=== PATIENT | female | born 1980 | race Caucasian/White ===

== ENCOUNTER 2020-10-17 09:37 | Outpatient (CLI) | payer OTHER, SELFPAY ==
--- NOTE | ~2020-10-17 | XR_ITS ---
EXAMINATION: XR hand BI arthritis min 3V EXAM DATE: 10/17/2020 10:46 INDICATION: M05.79 - Rheumatoid arthritis with rheumatoid factor of multiple sites without organ or s ystems involvement TECHNIQUE: Right hand frontal, lateral and oblique projections obtained and reviewed. Left hand fron lilli, lateral and oblique projections obtained and reviewed. Catchers projection of both hands. There is no prior study for comparison. FINDINGS: Right hand: There are no bony erosions identified. Joint spaces are uniform and symmetric to contrala teral side, no bony productive changes. No radiopaque foreign bodies identified. There are no acute f ractures identified. The soft tissue is unremarkable. Left hand: There are no bony erosions identified. Joint spaces are uniform and symmetric, no bony pro ductive changes. No radiopaque foreign bodies identified. There are no acute fractures identified. Th e soft tissue is unremarkable. IMPRESSION: Unremarkable hand exam. Reviewed, dictated and finalized at location A. IMPRESSION: Unremarkable hand exam.
--- NOTE | ~2020-10-17 | XR_ITS ---
EXAMINATION: XR foot LT standing 2V EXAM DATE: 10/17/2020 10:46 INDICATION: M05.79 - Rheumatoid arthritis with rheumatoid factor of multiple sites without organ or s ystems involvement . TECHNIQUE: Left foot 2 view frontal and lateral standing projections. There is no prior study for c omparison. FINDINGS: There are no bony erosions identified. There are no acute fractures or dislocations identi fied. There is no subcutaneous gas. The soft tissue is unremarkable. There are no radiopaque fore ign bodies. IMPRESSION: 1. Unremarkable XR foot LT standing 2V exam. Reviewed, dictated and finalized at location A.
--- NOTE | ~2020-10-17 | XR_ITS ---
EXAMINATION: XR thoracic spine 3V EXAM DATE: 10/17/2020 10:46 INDICATION: M54.9 - Dorsalgia, unspecified. TECHNIQUE: Frontal and lateral projections of the thoracic spine as well as lateral swimmers projecti on of the upper thoracic spine for interpretation. There is no prior study for comparison. FINDINGS: The vertebral bodies are aligned in the AP dimension. Vertebral body and disc heights are w ell-maintained. There are no acute fractures identified. Paraspinal soft tissue is unremarkable. Ther e are no bony erosions identified. IMPRESSION: Unremarkable thoracic x-ray exam. Reviewed, dictated and finalized at location A.
--- NOTE | ~2020-10-17 | XR_ITS ---
EXAMINATION: XR foot RT standing 2V EXAM DATE: 10/17/2020 10:46 INDICATION: M05.79 - Rheumatoid arthritis with rheumatoid factor of multiple sites without organ or s ystems involvement TECHNIQUE: Right foot frontal and lateral weightbearing projections. There is no prior study for com fer. FINDINGS: Tiny right calcaneal inferior spur. There are no bony erosions identified. There are no ac [place] fractures or dislocations identified. There is no subcutaneous gas. The soft tissue is unremark able. There are no radiopaque foreign bodies. IMPRESSION: Tiny right calcaneal spur. Reviewed, dictated and finalized at location A. IMPRESSION: Tiny right calcaneal spur.
== END 2020-10-17 09:38 | disposition home or self-care (01) ==
LOC: ANHIMG 09:47
PROVIDERS: PCP Family Medicine; Visit Provider Internal Medicine
DX: M54.6 Pain in thoracic spine (principal); M05.79 Rheumatoid arthritis with rheumatoid factor of multiple sites without organ or systems involvement
CPT/HCPCS: 72072; 73130; 73620

== ENCOUNTER 2020-11-05 09:30 | Outpatient (CLI) | payer OTHER, SELFPAY ==
--- NOTE | ~2020-11-05 | NM_ITS ---
EXAMINATION: NM stress w perf spect multi DATE: 11/05/2020 12:09 INDICATION: Dyspnea TECHNIQUE: Rest images were obtained following intravenous administration of 9.9 mCi Tc99m tetrofosmi n ([id number]). The patient performed an exercise activity. At peak exercise, 31.8 mCi Tc99m tetrofosmin ([id number]) was administered intravenously, and stress images were obtained. Data was reconstructed in to short axis and horizontal and vertical long axis SPECT images. Gated SPECT images were also obtain ed. COMPARISON: None. FINDINGS: There is normal left ventricular perfusion without definite evidence of reversible or fixed perfusion abnormality to suggest ischemia or infarction. There is normal left ventricular chamber size, wall motion and ejection fraction. Left ventricular ejection fraction measures >70%. IMPRESSION: 1. Normal myocardial perfusion at rest and during stress. 2. Left ventricular ejection fraction measuring >70%. Reviewed, dictated and finalized at location A.
--- NOTE | 2020-11-05 10:01 | EST_ITS ---
Patient Info Name: Vee Christiansen Age: 39 years : 1980 Gender: Female Ht: 65 in Wt: 190 lbs BSA: 2.02 m2 HR: 69 bpm BP: 128 / 77 mmHg Heart Rhythm: Sinus Rhythm Exam Date: 11/05/2020 10:49 AM Exam Location: [facility] Stress Patient Status: Outpatient Admit Date: 11/05/2020 Staff Ordering Physician: Leidy Baker MD Attending Provider: Leidy Baker MD Exercise Technologist: Tawny Beck CT Exercise Physician: Quinn Sidhu DO Exam Type: CA stress test treadmill w NM Study Info Indications R06.09 - Other forms of dyspnea A nuclear stress test was performed. Summary 1. 1. Negative Bc exercise stress test for ischemic ST changes by ECG criteria. 2. 2. Reduced functional capacity, achieving 7 METs of workload. 3. 3. Rapid HR response to exercise. 4. 4. Appropriate HR recovery at 1 minute post exercise. 5. 5. Nuclear scan to follow and will be reported separately. Please correlate with it. 6. 6. Patient informed of the above results. Protocol: Bc Stress ECG Details Stage: REST Duration (min): 1 min : 4 sec Speed (mph): 0.0 Grade (%): 0 HR (bpm): 73 SBP (mmHg): 128 DBP (mmHg): 77 METS: --- Stage: REST Duration (min): 4 min : 35 sec Speed (mph): 0.0 Grade (%): 0 HR (bpm): --- SBP (mmHg): 128 DBP (mmHg): 77 METS: --- Stage: STAGE 1 Duration (min): 1 min : 0 sec Speed (mph): 1.7 Grade (%): 10 HR (bpm): 120 SBP (mmHg): 128 DBP (mmHg): 77 METS: --- Stage: STAGE 1 Duration (min): 2 min : 0 sec Speed (mph): 1.7 Grade (%): 10 HR (bpm): 152 SBP (mmHg): 128 DBP (mmHg): 77 METS: --- Stage: STAGE 1 Duration (min): 3 min : 0 sec Speed (mph): 1.7 Grade (%): 10 HR (bpm): 164 SBP (mmHg): 161 DBP (mmHg): 83 METS: --- Stage: STAGE 2 Duration (min): 1 min : 0 sec Speed (mph): 2.5 Grade (%): 12 HR (bpm): 174 SBP (mmHg): 161 DBP (mmHg): 83 METS: --- Stage: STAGE 2 Duration (min): 1 min : 30 sec Speed (mph): 2.5 Grade (%): 12 HR (bpm): 174 SBP (mmHg): 200 DBP (mmHg): 83 METS: --- Stage: RECOVERY Duration (min): 0 min : 29 sec Speed (mph): 0.0 Grade (%): 0 HR (bpm): 168 SBP (mmHg): 200 DBP (mmHg): 83 METS: --- Stage: RECOVERY Duration (min): 1 min : 29 sec Speed (mph): 0.0 Grade (%): 0 HR (bpm): 139 SBP (mmHg): 200 DBP (mmHg): 83 METS: --- Stage: RECOVERY Duration (min): 2 min : 29 sec Speed (mph): 0.0 Grade (%): 0 HR (bpm): 117 SBP (mmHg): 200 DBP (mmHg): 83 METS: --- Stage: RECOVERY Duration (min): 2 min : 53 sec Speed (mph): 0.0 Grade (%): 0 HR (bpm): 109 SBP (mmHg): 184 DBP (mmHg): 81 METS: --- Peak HR: 175 bpm Rest Sys BP: 128 mmHg Peak Sys BP: 200 mmHg Max Pred HR: 181 bpm % Max Pred HR: 97 % Target HR: 154 bpm Max RPP: 35,000 bpm*mmHg
== END 2020-11-05 09:31 | disposition home or self-care (01) ==
PROVIDERS: PCP Family Medicine; Visit Provider Family Medicine
DX: R06.00 Dyspnea, unspecified (principal); Z91.89 Other specified personal risk factors, not elsewhere classified
CPT/HCPCS: 78452; 93017; A9502

== ENCOUNTER 2020-12-19 09:39 | Outpatient (CLI) | payer OTHER, SELFPAY ==
--- NOTE | 2020-12-19 09:58 | ECHO_ITS ---
Patient Info Name: Vee Christiansen Age: 39 years : 1980 Gender: Female Ht: 65 in Wt: 185 lbs BSA: 1.99 m2 HR: 73 bpm BP: 125 / 75 mmHg Heart Rhythm: Sinus Rhythm Exam Date: 12/19/2020 10:10 AM Exam Location: [facility] Patient Status: Outpatient Admit Date: 12/19/2020 Staff Ordering Physician: Quinn Sidhu DO Assistant Food Service Director: Gauri Rojas RDCS Attending Provider: Quinn Sidhu DO Referring Physician: Nahum SAMPSON; Exam Type: CA echo doppler color flow Study Info Indications R06.00 - Dyspnea, unspecified Complete two-dimensional, color flow and Doppler transthoracic echocardiogram is performed. Summary 1. Complete two-dimensional, color flow and Doppler transthoracic echocardiogram is performed. 2. Left ventricular chamber dimension is normal. 3. Left ventricular systolic function is normal, estimated at 60-65%. 4. The left ventricular diastolic function is grade II diastolic dysfunction. 5. E/e' 7 is not elevated. 6. There is mild mitral valve regurgitation. 7. There is trace tricuspid valve regurgitation. 8. No pulmonary hypertension, estimated pulmonary arterial systolic pressure is 24 mmHg. Left Ventricle E/e' 7 is not elevated. Left ventricular chamber dimension is normal. Left ventricular systolic function is normal, estimated at 60-65%. The left ventricular diastolic function is grade II diastolic dysfunction. Right Ventricle Right ventricular systolic function is normal and with normal TAPSE 2.0 cm.. Right ventricular chamber dimension is normal. Left Atria Left atrial chamber dimension is normal. Right Atria Right atrial chamber dimension is normal. Aortic Valve The aortic valve is trileaflet. There is no aortic valve stenosis. There is no aortic valve regurgitation. Pulmonic Valve There is no pulmonic regurgitation. Mitral Valve There is no mitral valve stenosis. There is mild mitral valve regurgitation. Tricuspid Valve There is trace tricuspid valve regurgitation. No pulmonary hypertension, estimated pulmonary arterial systolic pressure is 24 mmHg. Pericardium/Pleural There is no pericardial effusion. Inferior Vena Cava Normal inferior vena cava with >50% collapse upon inspiration consistent with normal right atrial pressure, 5 mmHg. Aorta The aortic root size at the sinus of Valsalva is normal. Left Ventricular Outflow Tract Name Value Normal LVOT 2D LVOT Diameter 1.9 cm LVOT Doppler LVOT Peak Gradient 4 mmHg LVOT Mean Gradient 2 mmHg LVOT VTI 20 cm LVOT VTI/AV VTI Ratio 0.7 LVOT Stroke Volume 54 ml LVOT CO 3.9 l/min LVOT CI 1.9 l/min/m2 Pulmonic Valve Name Value Normal RVOT Doppler
== END 2020-12-19 09:40 | disposition home or self-care (01) ==
PROVIDERS: PCP Family Medicine; Visit Provider Internal Medicine Cardiovascular Disease
DX: R06.00 Dyspnea, unspecified (principal); I34.0 Nonrheumatic mitral (valve) insufficiency
CPT/HCPCS: 93306

== ENCOUNTER 2021-01-25 12:34 | Outpatient (CLI) | payer OTHER, SELFPAY ==
--- NOTE | ~2021-01-25 | XR_ITS ---
EXAMINATION: XR chest 2V EXAM DATE: 01/25/2021 13:39 INDICATION: R06.00 - Dyspnea, unspecified. TECHNIQUE: Frontal and lateral projections of the chest obtained and reviewed. There is no prior azeb dy for comparison. FINDINGS: The lungs are clear. There are no pleural effusions. The cardiomediastinal silhouette is within normal limits. There is no pneumothorax suspected. The bones and soft tissues are unremarkab le. IMPRESSION: No acute cardiopulmonary findings. Reviewed, dictated and finalized at location B. LAB
--- NOTE | 2021-01-28 12:48 | P.PCNPFT_ITS ---
PFT Procedure Performed PFT Procedure Performed Spirometry with Pre/Post Bronchodilator Plethysmography (Lung Vol) Diffusing Cap (DLCO) Flow Vol Loop PFT Interpretation This is a pulmonary function test with pre and post-bronchodilator spirometry, plethysmography and diffusing capacity. The test was performed and results interpreted in accordance with the 2019 and 2005 ATS/ERS Task Force guidelines respectively using the Global Lung Function Initiative-2012 reference equations. Patient demonstrated good effort and cooperation. Reproducibility criteria were met. The quality of the pre bronchodilator spirometry maneuver was Grade A and post bronchodilator spirometry maneuver was Grade A. Findings: Spirometry: The contour the inspiratory and expiratory flow tracing are normal. The pre bronchodilator FVC is 4.22 L, 111% predicted. The pre bronchodilator FEV1 is 3.01 L, 97% predicted. The FEV1: FVC ratio 71%. The post bronchodilator FVC is 4.21 L, representing no change. The post bronchodilator FEV1 is 3.22 L, representing a 7% increase. The post bronchodilator FEV1: FVC ratio is 77%. Plethysmography: The total lung capacity is 6.19 L, 119% predicted. Functional residual capacity is 2.76 L, 96% predicted. The residual volume is 1.97 L, 121% predicted. Diffusing capacity: The absolute diffusion capacity is 22.3, 92% predicted. The diffusing capacity corrected for alveolar volume is 4.14, 88% predicted. Impression: The spirometry is normal without evidence of an obstructive abnorm ality. There is no significant improvement after inhaling a single dose of albuterol. The lung volumes are normal. The diffusing capacity is normal. There are no prior studies for comparison
== END 2021-01-25 12:35 | disposition home or self-care (01) ==
PROVIDERS: PCP Family Medicine; Referring Provider Internal Medicine; Visit Provider Internal Medicine Cardiovascular Disease
DX: R06.00 Dyspnea, unspecified (principal)
CPT/HCPCS: 71046; 94060; 94726; 94729

== ENCOUNTER 2021-10-04 10:08 | Outpatient (CLI) | payer OTHER, SELFPAY ==
--- NOTE | ~2021-10-04 | CT_ITS ---
EXAMINATION: CT diagnostic chest w con DATE: 10/04/2021 10:34 INDICATION: Dyspnea on exertion TECHNIQUE: Transaxial computed tomographic images of the chest were obtained after the administration of 75 cc of Omnipaque 350 intravenous contrast. The dose-length product (DLP) was 329.17 mGy-cm. Ite rative reconstruction was used. COMPARISON: None FINDINGS: The lungs are free of acute opacities. No pleural effusion or pneumothorax. No pathological ly enlarged thoracic lymph nodes are identified. The heart size is normal. Triangular soft tissue den sity of the anterior mediastinum likely represents residual thymus. The liver is diffusely low in att enuation when compared with the spleen, consistent with hepatic steatosis. There is a 9 mm cyst of th e spleen. There is mild thoracic spondylosis. IMPRESSION: 1. . No acute cardiopulmonary abnormality. Reviewed, dictated and finalized at location B.
== END 2021-10-04 10:09 | disposition home or self-care (01) ==
PROVIDERS: PCP Family Medicine; Visit Provider Internal Medicine
DX: R06.00 Dyspnea, unspecified (principal)
CPT/HCPCS: 71260; Q9967

== ENCOUNTER 2021-12-04 15:20 | Outpatient (CLI) | payer OTHER, SELFPAY ==
--- NOTE | ~2021-12-04 | MM_ITS ---
EXAMINATION: MM screening tsering BI w shana HISTORY: Baseline screening mammogram TECHNIQUE: Craniocaudal and mediolateral oblique 3-D tomosynthesis images were obtained and synthetic 2-D images were generated. CAD analysis was submitted and interpreted. COMPARISON: None, baseline BREAST PARENCHYMAL COMPOSITION: The breasts are heterogeneously dense, which may obscure small masses . FINDINGS: RIGHT BREAST: There are asymmetries in the upper outer quadrant of the breast. LEFT BREAST: There is asymmetry in the middle third of the upper breast on the mediolateral oblique v iew. IMPRESSION: 1. Bilateral breast asymmetries. 2. Additional mammographic views and possible breast ultrasound are recommended to evaluate for malig melinda and establish a baseline given that this is the first mammographic examination. BI-RADS Category 0: Incomplete: Needs additional imaging evaluation. Reviewed, dictated and finalized at location A. IMPRESSION: 1. Bilateral breast asymmetries. 2. Additional mammographic views and possible breast ultrasound are recommended to evaluate for malignancy and establish a baseline given that this is the fir st mammographic examination. BI-RADS Category 0: Incomplete: Needs additional imaging evaluation.
== END 2021-12-04 15:21 | disposition home or self-care (01) ==
PROVIDERS: PCP Family Medicine; Visit Provider Nurse Practitioner Obstetrics & Gynecology
DX: Z12.31 Encounter for screening mammogram for malignant neoplasm of breast (principal); R92.8 Other abnormal and inconclusive findings on diagnostic imaging of breast
CPT/HCPCS: 77063; 77067

== ENCOUNTER 2022-03-04 12:33 | Outpatient (CLI) | payer OTHER, SELFPAY ==
--- NOTE | ~2022-03-04 | MMUS_ITS ---
EXAMINATION: MM diagnostic tsering BI w shana, US breast BI complete HISTORY: Bilateral breast mammographic asymmetries reported on 12/04/2021 screening mammogram examina tion TECHNIQUE: Additional 3-D tomosynthesis images of both breasts were performed and synthetic 2-D image s were generated. CAD analysis was submitted and interpreted. High resolution bilateral complete [address] st ultrasound examination including all 4 quadrants and subareolar area of each breast was performed. COMPARISON: 12/04/2021 bilateral screening mammogram FINDINGS: MAMMOGRAPHIC FINDINGS: No suspicious mass or architectural distortion, malignant calcification, skin thickening or retractio n or significant new or developing density is detected. ULTRASOUND: A parallel circumscribed sonolucency measuring 4.9 x 2 x 3.2 mm is noted in the right breast at 9:00 5 cm from the nipple, without internal vascularity or posterior shadowing, consistent with small cyst . No suspicious mass or shadowing or other significant sonographic finding is noted in either breast. IMPRESSION: 1. No mammographic evidence of malignancy 2. Routine mammographic screening is recommended BI-RADS Category 2: Benign finding(s). Reviewed, dictated and finalized at location A. ICAL GENETICIST IMPRESSION: 1. No mammographic evidence of malignancy 2. Routine mammographic screening is recommended BI-RADS Category 2: Benign finding(s).
== END 2022-03-04 12:34 | disposition home or self-care (01) ==
PROVIDERS: PCP Family Medicine; Visit Provider Nurse Practitioner Obstetrics & Gynecology
DX: R92.8 Other abnormal and inconclusive findings on diagnostic imaging of breast (principal)
CPT/HCPCS: 76641; 77062; 77066; G0279

== ENCOUNTER 2022-11-24 09:47 | Outpatient (CLI) | payer OTHER, SELFPAY ==
--- NOTE | ~2022-11-24 | US_ITS ---
EXAMINATION: US venous doppler [facility] DATE: 11/24/2022 11:18 INDICATION: Pain in unspecified lower leg. TECHNIQUE: Grayscale ultrasound images without and with compression and Doppler ultrasound images of the bilateral lower extremity veins were obtained. COMPARISON: None. FINDINGS: The visualized portions of right common femoral vein, profunda (deep) femoral vein, femoral vein, pop liteal vein, peroneal veins, posterior tibial veins, and greater saphenous vein outflow are patent. The visualized portions of left common femoral vein, profunda femoral vein, femoral vein, popliteal v ein, peroneal veins, posterior tibial veins, and greater saphenous vein outflow are patent. IMPRESSION: 1. No deep venous thrombosis. Reviewed, dictated and finalized at location E.
== END 2022-11-24 09:48 | disposition home or self-care (01) ==
PROVIDERS: PCP Family Medicine; Visit Provider Internal Medicine
DX: M79.669 Pain in unspecified lower leg (principal)
CPT/HCPCS: 93970

== ENCOUNTER 2023-01-20 11:08 | Outpatient (CLI) | payer OTHER, SELFPAY ==
--- NOTE | ~2023-01-20 | MMUS_ITS ---
EXAMINATION: MM diagnostic tsering BI w shana, US breast LT complete HISTORY: Palpable left breast lump TECHNIQUE: Additional 3-D tomosynthesis images of the breasts were performed and synthetic 2-D images were generated. CAD analysis was submitted and interpreted. High resolution complete left breast ult rasound was performed. COMPARISON: Comparison to multiple prior studies sequentially, with oldest reviewed study dated 11/10. BREAST PARENCHYMAL COMPOSITION: Breast composed of scattered areas of fibroglandular density FINDINGS: MAMMOGRAPHIC FINDINGS: The breasts are stable. No new masses, calcifications or architectural distortion in either breast to suggest malignancy. ULTRASOUND: Complete US of all 4 quadrants of the left breast and retroareolar region was reviewed. Normal hetero geneous echotexture without focal solid or cystic mass. IMPRESSION: 1. No evidence for malignancy in either breast. 2. Routine yearly screening mammogram and regular clinical breast examination are recommended. BI-RADS Category 1: Negative Reviewed, dictated and finalized at location A. L GRINDER IMPRESSION: 1. No evidence for malignancy in either breast. 2. Routine yearly screening mammogram and regular clinical breast examination a re recommended. BI-RADS Category 1: Negative
== END 2023-01-20 11:09 | disposition home or self-care (01) ==
PROVIDERS: PCP Family Medicine; Visit Provider Nurse Practitioner
DX: N63.20 Unspecified lump in the left breast, unspecified quadrant (principal)
CPT/HCPCS: 76641; 77062; 77066; G0279